=== PATIENT | female | born 1975 | race Caucasian/White ===

== ENCOUNTER 2016-05-15 18:48 | Emergency (ER) | payer OTHER ==
[~2016-05-15] VITALS: Ht 165.1 cm; Wt 67.7 kg
[~2016-05-15 18:48] MED LIST: MICRONOR0.35 MG PO; NAPROSYN500 MG PO; ULTRAM50 MG PO
[2016-05-15 19:30] LABS: MCH 29.9 PG (29.0-34.0); MCHC 34.9 G/DL (30.0-36.0); MCV 85.7 FL (83-99); MEAN PLAT.VOLUME 9.1 uM^3 (9.5-12.4); PLATELET COUNT 320 K/uL (156-360); RBC DIS.WIDTH-CV 13.9 % (11.8-14.6); RED BLOOD COUNT 4.55 M/uL (3.80-5.20); WHITE BLOOD COUNT 10.6 K/uL (4.1-10.2)
[2016-05-15 19:37] LABS: CHLORIDE 105 mEq/L (99-109); POTASSIUM 3.3 mEq/L (3.7-5.4); SODIUM 143 mEq/L (136-147)
[2016-05-15 19:39] LABS: GLUCOSE 116 mg/dL (70-99)
[2016-05-15 19:41] LABS: ANION GAP 10 MEQ/L (2-14); TOTAL BILIRUBIN 0.5 mg/dL (0.0-1.0)
[2016-05-15 19:43] LABS: ALKALINE PHOSPHATASE 65 IU/L (3-129); GFR ESTIMATE (CALCULATED) > 59 mL/min/
[2016-05-15 19:44] LABS: UREA NITROGEN (BUN) 11 mg/dL (9-23)
[2016-05-15 19:54] LABS: QUANTITATIVE HCG < 4.0 MIU/ML
[2016-05-15 21:15] LABS: ADD MIUA? YES; BILIRUBIN NEGATIVE; BLOOD MODERATE; COLOR YELLOW ((YELLOW)); GLUCOSE (STRIP) NEGATIVE; KETONES 15; LEUKOCYTES NEGATIVE; NITRITE NEGATIVE; PH, URINE 6.5 (5-8); PROTEIN (STRIP) NEGATIVE; SPECIFIC GRAVITY 1.011 (1.000-1.030); UROBILINOGEN 0.2 MG/DL (0.2-1.0)
[2016-05-15 21:49] LABS: BACTERIA RARE; CASTS NONE SEEN /LPF; CRYSTALS NONE SEEN; EPITHELIAL CELLS NONE SEEN; MUCUS NONE SEEN; UCUL ADDED? NO; WHITE BLOOD CELLS 0-5 /HPF (0-5)
[2016-05-15] MEDS ORDERED: ZOFRAN ODT4 MG PO (22:44)
[2016-05-15] MEDS ORDERED: TYLENOL WITH C1 EACH PO (22:44)
[2016-05-15 23:07] VITALS: BP 123/72
== END 2016-05-15 23:10 | disposition home or self-care (01) ==
LOC: RME 18:48 → EME 18:48 → RME 23:10
DX: R10.9 Unspecified abdominal pain (principal); R11.0 Nausea; R05 Cough; F17.200 Nicotine dependence, unspecified, uncomplicated
CPT/HCPCS: 74000; 80053; 81003; 84702; 85027; 99281; 99284

== ENCOUNTER 2016-05-18 08:31 | Emergency (ER) | payer OTHER ==
[~2016-05-18] VITALS: Ht 165.1 cm; Wt 68.0 kg
[~2016-05-18 08:31] MED LIST changes: +TYLENOL WITH C1 EACH PO; +ZOFRAN ODT4 MG PO
[2016-05-18 09:16] LABS: EOSINOPHIL (%) 1.3 % (0-5); EOSINOPHIL COUNT 0.1 K/uL (0-0.3); HEMATOCRIT 38.1 % (36.0-46.0); IMMATURE GRANULOCYTE (%) 0.1 % (0.0-0.7); IMMATURE GRANULOCYTE COUNT 0.1 K/uL; LYMPHOCYTE COUNT 1.7 K/uL (1.0-2.8); MCH 29.4 PG (29.0-34.0); MCHC 34.1 G/DL (30.0-36.0); MCV 86.2 FL (83-99); MEAN PLAT.VOLUME 9.6 uM^3 (9.5-12.4); MONOCYTE (%) 5.9 % (3-12); MONOCYTE COUNT 0.5 K/uL (0-0.8); NEUTROPHIL COUNT 6.5 K/uL (1.8-6.4); PLATELET COUNT 325 K/uL (156-360); RBC DIS.WIDTH-CV 14.1 % (11.8-14.6); RBC DIS.WIDTH-SD 43.6 % (39-53); RED BLOOD COUNT 4.42 M/uL (3.80-5.20); WHITE BLOOD COUNT 8.9 K/uL (4.1-10.2)
[2016-05-18 09:26] LABS: CHLORIDE 109 mEq/L (99-109); POTASSIUM 2.9 mEq/L (3.7-5.4); SODIUM 143 mEq/L (136-147)
[2016-05-18 09:27] LABS: GLUCOSE 101 mg/dL (70-99)
[2016-05-18 09:29] LABS: ANION GAP 10 MEQ/L (2-14)
[2016-05-18 09:31] LABS: GFR ESTIMATE (CALCULATED) > 59 mL/min/
[2016-05-18 09:32] LABS: UREA NITROGEN (BUN) 10 mg/dL (9-23)
[2016-05-18 09:36] LABS: TROP-I INTERPRETATION NEGATIVE; TROPONIN-I < 0.01 ng/mL (0.0-0.30)
[2016-05-18 09:39] LABS: QUANTITATIVE HCG < 4.0 MIU/ML
[2016-05-18 11:03] VITALS: BP 108/80
== END 2016-05-18 11:14 | disposition home or self-care (01) ==
LOC: EME → EDBD 08:31 → EME 11:14
PROVIDERS: Physician Assistant
DX: R07.89 Other chest pain (principal); F17.200 Nicotine dependence, unspecified, uncomplicated
CPT/HCPCS: 71010; 80048; 84484; 84702; 85025; 93005; 99281; 99284

== ENCOUNTER 2016-05-23 15:55 | Emergency (ER) | payer OTHER ==
[~2016-05-23] VITALS: Ht 165.1 cm; Wt 65.2 kg
[2016-05-23 16:48] LABS: HEMATOCRIT 39.4 % (36.0-46.0); MCH 29.8 PG (29.0-34.0); MCHC 34.8 G/DL (30.0-36.0); MCV 85.8 FL (83-99); MEAN PLAT.VOLUME 9.5 uM^3 (9.5-12.4); PLATELET COUNT 307 K/uL (156-360); RBC DIS.WIDTH-CV 14.2 % (11.8-14.6); RBC DIS.WIDTH-SD 43.8 % (39-53); RED BLOOD COUNT 4.59 M/uL (3.80-5.20); WHITE BLOOD COUNT 10.3 K/uL (4.1-10.2)
[2016-05-23 17:04] LABS: CHLORIDE 105 mEq/L (99-109); POTASSIUM 3.1 mEq/L (3.7-5.4); SODIUM 142 mEq/L (136-147)
[2016-05-23 17:06] LABS: GLUCOSE 113 mg/dL (70-99)
[2016-05-23 17:07] LABS: ANION GAP 14 MEQ/L (2-14)
[2016-05-23 17:10] LABS: GFR ESTIMATE (CALCULATED) > 59 mL/min/
[2016-05-23 17:11] LABS: UREA NITROGEN (BUN) 12 mg/dL (9-23)
[2016-05-23] MEDS ORDERED: ZOFRAN4 MG PO (19:30)
[2016-05-23] MEDS ORDERED: BENTYL10 MG PO (19:30)
[2016-05-23 19:40] VITALS: BP 112/75
== END 2016-05-23 19:43 | disposition home or self-care (01) ==
LOC: EME 15:55
DX: R11.0 Nausea (principal); R10.13 Epigastric pain; K59.00 Constipation, unspecified; R07.81 Pleurodynia; F17.200 Nicotine dependence, unspecified, uncomplicated
CPT/HCPCS: 71020; 80048; 85027; 99281; 99284